=== PATIENT | female | born 1975 | race Caucasian/White ===

== ENCOUNTER 2017-07-09 11:36 | Emergency (ER) | payer OTHER ==
[~2017-07-09] VITALS: Ht 167.6 cm; Wt 39.9 kg
[~2017-07-09 11:36] MED LIST: CEL500 PO; DIL100 PO; FER300 PO; FERROUS SULFAT325 M2 PO; FOL1 PO; KEP500 PO; LAMOTRIGINE25 MG PO; PLA200; PRE10 PO; PREDNISONE10 MG PO; PRI20 PO; VITAMIN D32000 I2 PO; VITC PO; ZOV200 PO
[2017-07-09 12:41] VITALS: Ht 167.6 cm; Wt 39.9 kg
[2017-07-09 13:50] LABS: BASOPHIL % 2.3 % (0-2); PLATELET COUNT 298 x10^3mcL (130-400); RED CELL DISTRIBUTION WIDTH 12.9 % (11.5-14.5)
[2017-07-09 13:51] LABS: ALBUMIN 3.8 g/dL (3.4-5.0); CALCIUM 8.8 mg/dL (8.5-10.1); CARBON DIOXIDE 28.9 mmol/L (21-32); CHLORIDE SERUM 104 mmol/L (98-107); CREATININE SERUM 0.6 mg/dL (0.6-1.0); GFR1 > 60 mL/min; GLUCOSE SERUM 80 mg/dL (74-106); POTASSIUM SERUM 3.8 mmol/L (3.5-5.1); SODIUM SERUM 141 mmol/L (136-145)
[2017-07-09 14:01] LABS: ALKALINE PHOSPHATASE 165 U/L (46-116); ALT/SGPT 34 U/L (14-59); AST/SGOT 25 U/L (15-37); BILIRUBIN TOTAL 0.2 mg/dL (0.20-1.00)
[2017-07-09 14:04] LABS: TOTAL PROTEIN, SERUM 8.7 g/dL (6.4-8.2)
[2017-07-09 14:30] VITALS: BP 112/70
== END 2017-07-09 14:30 | disposition home or self-care (01) ==
LOC: ED 11:36
PROVIDERS: Emergency Medicine
DX: M32.10 Systemic lupus erythematosus, organ or system involvement unspecified (principal); F41.9 Anxiety disorder, unspecified
CPT/HCPCS: 36415; J3010

== ENCOUNTER 2017-12-03 17:38 | Emergency (ER) | payer OTHER ==
[~2017-12-03] VITALS: Ht 157.5 cm; Wt 38.3 kg
[2017-12-03 17:53] VITALS: Ht 157.5 cm; Wt 38.3 kg
[2017-12-03 20:08] VITALS: BP 118/77
== END 2017-12-03 20:08 | disposition home or self-care (01) ==
LOC: ED 17:38
DX: H02.89 Other specified disorders of eyelid (principal); Z86.69 Personal history of other diseases of the nervous system and sense organs; M32.9 Systemic lupus erythematosus, unspecified
CPT/HCPCS: Q0163

== ENCOUNTER 2017-12-09 15:23 | Inpatient (IN) | payer OTHER ==
[~2017-12-09] VITALS: Ht 157.5 cm; Wt 42.6 kg
[2017-12-09 15:28] VITALS: Ht 157.5 cm; Wt 42.6 kg
[2017-12-09 18:10] LABS: PLATELET COUNT 295 x10^3mcL (130-400)
[2017-12-09 18:11] LABS: BASOPHIL % 0 % (0-2); RED CELL DISTRIBUTION WIDTH 14.6 % (11.5-14.5)
[2017-12-09 18:15] LABS: CALCIUM 8.2 mg/dL (8.5-10.1); CARBON DIOXIDE 29.1 mmol/L (21-32); CHLORIDE SERUM 102 mmol/L (98-107); CREATININE SERUM 0.7 mg/dL (0.6-1.0); GFR1 > 60 mL/min; GLUCOSE SERUM 98 mg/dL (74-106); POTASSIUM SERUM 4.4 mmol/L (3.5-5.1); SODIUM SERUM 136 mmol/L (136-145)
[2017-12-09 18:20] LABS: ALKALINE PHOSPHATASE 181 U/L (46-116); ALT/SGPT 19 U/L (14-59); AST/SGOT 20 U/L (15-37); BILIRUBIN TOTAL 0.16 mg/dL (0.20-1.00); TOTAL PROTEIN, SERUM 7.4 g/dL (6.4-8.2)
[2017-12-09 18:26] LABS: ALBUMIN 2.5 g/dL (3.4-5.0)
[2017-12-09] MEDS ORDERED: LOSARTAN POTASS25 M1 PO (20:54)
[2017-12-09] MEDS ORDERED: PLA200 PO (20:54)
[2017-12-09] MEDS ORDERED: PREDNISONE2.5 MG PO (20:55)
[2017-12-09] MEDS ORDERED: CEL500 PO (20:56)
[2017-12-09] MEDS ORDERED: KEPPRA500 MG PO (20:57)
[2017-12-09] MEDS ORDERED: DILANTIN100 MG PO ×2 (21:00)
[2017-12-09 22:00] LABS: AMPHETAMINE QUAL UR NONE DETECTED (See below)
[2017-12-09 22:37] LABS: MAGNESIUM 1.9 mg/dL (1.8-2.4); PHOSPHOROUS 3.5 mg/dL (2.5-4.9)
[2017-12-09 22:38] LABS: CHOLESTEROL/HDL RATIO 2.5
[2017-12-09 22:39] LABS: T3 TOTAL 0.81 ng/mL
[2017-12-09 22:43] LABS: FREE T4 0.82 ng/dL (0.76-1.46); FREE THYROXINE INDEX 1.5 ug/dL (1.4-4.5); T4(THYROXINE) 5.4 ug/dL (4.7-13.3)
[2017-12-09 22:51] VITALS: BP 132/79
[2017-12-09 23:31] LABS: UA SPECIFIC GRAVITY <=1.005 (1.005-1.035); microscopic required? YES; urine erythrocyte 3+ (NEGATIVE)
[2017-12-10 02:36] LABS: IRON 13 ug/dL (50-170); TOTAL IRON BINDING CAPACITY 210 ug/dL (250-450)
[2017-12-10 02:47] LABS: RED BLOOD CELLS 2.79 M/mm3 (4.10-5.10)
[2017-12-10 05:23] VITALS: BP 106/62
[2017-12-10 07:23] LABS: BASOPHIL % 0.4 % (0-2); PLATELET COUNT 263 x10^3mcL (130-400); RED CELL DISTRIBUTION WIDTH 14.3 % (11.5-14.5)
[2017-12-10 07:27] LABS: CALCIUM 7.9 mg/dL (8.5-10.1); CARBON DIOXIDE 25.5 mmol/L (21-32); CHLORIDE SERUM 106 mmol/L (98-107); CREATININE SERUM 0.6 mg/dL (0.6-1.0); GFR1 > 60 mL/min; GLUCOSE SERUM 82 mg/dL (74-106); POTASSIUM SERUM 3.8 mmol/L (3.5-5.1); SODIUM SERUM 138 mmol/L (136-145)
[2017-12-10 09:58] VITALS: BP 96/60
[2017-12-10 11:39] LABS: rbc morphology (normal/abnorm) ABNORMAL (NORMAL)
[2017-12-10 13:37] VITALS: BP 126/66
[2017-12-10 17:31] VITALS: BP 110/75
[2017-12-10 21:16] VITALS: BP 104/70
[2017-12-11 05:57] VITALS: BP 110/73
[2017-12-11 06:55] LABS: BASOPHIL % 0.5 % (0-2); PLATELET COUNT 258 x10^3mcL (130-400); RED CELL DISTRIBUTION WIDTH 15.1 % (11.5-14.5)
[2017-12-11 07:23] LABS: ALKALINE PHOSPHATASE 145 U/L (46-116); ALT/SGPT 12 U/L (14-59); AST/SGOT 15 U/L (15-37); BILIRUBIN DIRECT 0.07 mg/dL (0.0-0.2); CALCIUM 8.1 mg/dL (8.5-10.1); CARBON DIOXIDE 24.1 mmol/L (21-32); CHLORIDE SERUM 105 mmol/L (98-107); CREATININE SERUM 0.6 mg/dL (0.6-1.0); GFR1 > 60 mL/min; GLUCOSE SERUM 86 mg/dL (74-106); POTASSIUM SERUM 4.3 mmol/L (3.5-5.1); SODIUM SERUM 137 mmol/L (136-145); TOTAL PROTEIN, SERUM 6.2 g/dL (6.4-8.2)
[2017-12-11 08:18] VITALS: BP 111/70
[2017-12-11 12:36] VITALS: BP 137/84
[2017-12-11 15:59] VITALS: BP 109/71
== END 2017-12-11 20:55 | disposition home or self-care (01) | DRG 545 ==
LOC: ED 15:23 → DU 21:36
PROVIDERS: Emergency Medicine; Family Medicine; Internal Medicine Pulmonary Disease
PROC: 30233N1 Transfusion of Nonautologous Red Blood Cells into Peripheral Vein, Percutaneous Approach (ICD-10-PCS; principal; 2017-12-10)
DX: M32.14 Glomerular disease in systemic lupus erythematosus (principal); E43 Unspecified severe protein-calorie malnutrition; I31.3 Pericardial effusion (noninflammatory); N18.4 Chronic kidney disease, stage 4 (severe); Z68.1 Body mass index [BMI] 19.9 or less, adult; I12.9 Hypertensive chronic kidney disease with stage 1 through stage 4 chronic kidney disease, or unspecified chronic kidney disease; D53.9 Nutritional anemia, unspecified; S40.822A Blister (nonthermal) of left upper arm, initial encounter; R31.9 Hematuria, unspecified; G40.909 Epilepsy, unspecified, not intractable, without status epilepticus; I35.1 Nonrheumatic aortic (valve) insufficiency; Z79.52 Long term (current) use of systemic steroids; X58.XXXA Exposure to other specified factors, initial encounter; Y93.89 Activity, other specified; Y92.89 Other specified places as the place of occurrence of the external cause
CPT/HCPCS: 83880; 84439; J2916; J2920; J7030; J7050; J7517; P9016; Q0092; Q9967

== ENCOUNTER 2019-04-01 13:15 | Emergency (ER) | payer OTHER ==
[~2019-04-01] VITALS: Ht 160 cm; Wt 39.9 kg
[~2019-04-01 13:15] MED LIST changes: +DILANTIN100 MG PO; +KEPPRA500 MG PO; +LOSARTAN POTASS25 M1 PO; +PLA200 PO; +PREDNISONE2.5 MG PO
[2019-04-01 13:19] VITALS: Ht 160 cm; Wt 39.9 kg
[2019-04-01 14:12] LABS: CALCIUM 8.8 mg/dL (8.5-10.1); CARBON DIOXIDE 33.5 mmol/L (21-32); CHLORIDE SERUM 105 mmol/L (98-107); CREATININE SERUM 0.6 mg/dL (0.6-1.0); GFR1 > 60 mL/min; GLUCOSE SERUM 84 mg/dL (74-106); POTASSIUM SERUM 4.4 mmol/L (3.5-5.1); SODIUM SERUM 142 mmol/L (136-145)
[2019-04-01 14:16] LABS: BASOPHIL % 0.2 % (0-2); PLATELET COUNT 189 x10^3mcL (130-400)
[2019-04-01 14:18] LABS: ALBUMIN 4.1 g/dL (3.4-5.0); ALKALINE PHOSPHATASE 130 U/L (46-116); ALT/SGPT 38 U/L (14-59); AST/SGOT 29 U/L (15-37); BILIRUBIN TOTAL 0.2 mg/dL (0.20-1.00); TOTAL PROTEIN, SERUM 7.4 g/dL (6.4-8.2)
[2019-04-01 15:07] LABS: AMPHETAMINE QUAL UR NONE DETECTED (See below)
[2019-04-01 17:22] VITALS: BP 95/61
== END 2019-04-01 17:41 | disposition home or self-care (01) ==
LOC: ED 13:15
PROVIDERS: Emergency Medicine
DX: G40.909 Epilepsy, unspecified, not intractable, without status epilepticus (principal); F41.9 Anxiety disorder, unspecified
CPT/HCPCS: 36415; G0480

== ENCOUNTER 2020-07-25 16:53 | Emergency (ER) | payer OTHER ==
[~2020-07-25] VITALS: Ht 160 cm; Wt 40.8 kg
[2020-07-25 17:05] VITALS: Ht 160 cm; Wt 40.8 kg
[2020-07-25 18:16] VITALS: BP 97/60
== END 2020-07-25 18:46 | disposition home or self-care (01) ==
LOC: ED 16:53
DX: S01.81XA Laceration without foreign body of other part of head, initial encounter (principal); S50.02XA Contusion of left elbow, initial encounter; G40.909 Epilepsy, unspecified, not intractable, without status epilepticus; W19.XXXA Unspecified fall, initial encounter; Y93.89 Activity, other specified; Y92.89 Other specified places as the place of occurrence of the external cause; Y99.8 Other external cause status
CPT/HCPCS: 90715